=== PATIENT | female | born 1965 | race Asian ===

== ENCOUNTER → 2017-01-11 | Outpatient (CLI) | payer OTHER ==
[~2017-01-11] MED LIST: LIDOCAINE 1%, 20ML ONE; LIDOCAINE 1%-EPI 1:100K, 20ML ONE
== END | disposition home or self-care (01) ==
LOC: CFH 14:07
PROVIDERS: ATTEND Specialist
DX: N63.12 Unspecified lump in the right breast, upper inner quadrant (principal); R59.0 Localized enlarged lymph nodes
CPT/HCPCS: 19083; 76642; 76942; 88305; G0206; J3490

== ENCOUNTER → 2017-01-25 | Outpatient (CLI) | payer OTHER ==
[~2017-01-25] MED LIST changes: +GADOBUTROL 10 MMOL/10 ML VIAL ONE; -LIDOCAINE 1%, 20ML ONE; -LIDOCAINE 1%-EPI 1:100K, 20ML ONE
== END | disposition home or self-care (01) ==
LOC: CFH 11:14
PROVIDERS: ATTEND Surgery
DX: C50.211 Malignant neoplasm of upper-inner quadrant of right female breast (principal); C79.81 Secondary malignant neoplasm of breast
CPT/HCPCS: A9585; C8908

== ENCOUNTER → 2017-01-26 | Outpatient (CLI) | payer OTHER ==
[~2017-01-26] MED LIST changes: -GADOBUTROL 10 MMOL/10 ML VIAL ONE; +OMNIPAQUE 350 MG/ML, 100ML BOTTLE ONE
== END | disposition home or self-care (01) ==
LOC: RAD 11:03
PROVIDERS: ATTEND Surgery
DX: C50.911 Malignant neoplasm of unspecified site of right female breast (principal); N63.10 Unspecified lump in the right breast, unspecified quadrant; M47.9 Spondylosis, unspecified
CPT/HCPCS: 71260; 74177; 78306; A9503; Q9967

== ENCOUNTER 2017-02-02 10:28 | Day surgery (SDC) | payer OTHER ==
[~2017-02-02] VITALS: Ht 160 cm; Wt 70.6 kg
[2017-02-02 10:55] VITALS: BP 158/93
[2017-02-02] MEDS ORDERED: LACTATED RINGERS 1,000 ML IV SCH (11:03)
[2017-02-02] MEDS ORDERED: FLUO40CA2 PO (11:22)
[2017-02-02] MEDS ORDERED: MIDAZOLAM 1 MG/ML, 2ML ONE (11:34)
[2017-02-02] MEDS ORDERED: FENTANYL PF 100 MCG/2ML ONE (11:34)
[2017-02-02] MEDS ORDERED: HYDROmorphone 1 MG/ML, 1ML IV PRN (12:00)
[2017-02-02] MEDS ORDERED: ONDANSETRON 2MG/ML, 2ML IVPush PRN (12:00)
[2017-02-02] MEDS ORDERED: MEPERIDINE/PF 25MG/0.5ML IVPush PRN (12:00)
[2017-02-02] MEDS ORDERED: OXYcodone 5 MG/5 ML ORAL.SOL UDC PO PRN (12:00)
[2017-02-02] MEDS ORDERED: PROMETHAZINE 25 MG/ML, 1ML IV PRN (12:00)
[2017-02-02] MEDS ORDERED: LABETALOL 5MG/ML, 20ML IV PRN (12:00)
[2017-02-02] MEDS ORDERED: FENTANYL PF 100 MCG/2ML IV PRN (12:00)
[2017-02-02] MEDS ORDERED: ACETAMINOPHEN 325 MG TABLET PO PRN (12:00)
[2017-02-02] MEDS ORDERED: hydrALAzine 20 MG/ML, 1ML IV PRN (12:00)
[2017-02-02] MEDS ORDERED: CEFAZOLIN 1,000 MG ONE (12:10)
[2017-02-02] MEDS ORDERED: PROPOFOL 10 MG/ML, 20ML ONE (12:10)
[2017-02-02] MEDS ORDERED: ROCURONIUM 10 MG/ML,10ML ONE (12:10)
[2017-02-02] MEDS ORDERED: DEXAMETHASONE 4 MG/ML, 1ML ONE (12:10)
[2017-02-02] MEDS ORDERED: EPHEDRINE 50 MG/ML, 1ML ONE (12:36)
[2017-02-02] MEDS ORDERED: BUPIVACAINE/PF 0.5% INFIL ONE (12:38)
[2017-02-02] MEDS ORDERED: HEPARIN 1,000 UNITS/ML, 10ML IV ONE (12:39)
[2017-02-02] MEDS ORDERED: ONDANSETRON 2MG/ML, 2ML ONE (13:03)
== END 2017-02-02 16:25 ==
LOC: OUT 10:28
PROVIDERS: ATTEND Surgery
DX: Z45.2 Encounter for adjustment and management of vascular access device (principal); C50.811 Malignant neoplasm of overlapping sites of right female breast; F41.9 Anxiety disorder, unspecified; Z98.890 Other specified postprocedural states
CPT/HCPCS: 36561; 71010; C1769; C1788; J0690; J1100; J1644; J2250; J2405; J2704; J3010; J3490; J7120

== ENCOUNTER → 2017-02-02 | Outpatient (CLI) | payer OTHER ==
[~2017-02-02] MED LIST changes: +FLUO40CA2 PO; -OMNIPAQUE 350 MG/ML, 100ML BOTTLE ONE
== END ==
LOC: CFH 07:19
PROVIDERS: ATTEND Internal Medicine Hematology & Oncology
DX: C50.411 Malignant neoplasm of upper-outer quadrant of right female breast (principal)
CPT/HCPCS: 76000; 77001; 93306

== ENCOUNTER → 2017-02-03 | Outpatient (CLI) | payer OTHER ==
[~2017-02-03] MED LIST changes: +BUPIVACAINE/PF 0.5% ONE; +EPINEPHRINE 1 MG/ML, 1ML ONE; +HEPARIN 1,000 UNITS/ML, 10ML ONE
== END | disposition home or self-care (01) ==
LOC: PETCFH 09:43
PROVIDERS: ATTEND Internal Medicine Hematology & Oncology
DX: C79.81 Secondary malignant neoplasm of breast (principal); C50.411 Malignant neoplasm of upper-outer quadrant of right female breast
CPT/HCPCS: 78815; A9552; J0171; J1644; J3490

== ENCOUNTER → 2017-02-24 | Outpatient (CLI) | payer OTHER ==
[~2017-02-24] MED LIST changes: -BUPIVACAINE/PF 0.5% ONE; -EPINEPHRINE 1 MG/ML, 1ML ONE; +GADOBUTROL 7.5 MMOL/7.5 ML VIAL ONE; -HEPARIN 1,000 UNITS/ML, 10ML ONE
== END | disposition home or self-care (01) ==
LOC: CFH 13:06
PROVIDERS: ATTEND Internal Medicine Hematology & Oncology
DX: C50.211 Malignant neoplasm of upper-inner quadrant of right female breast (principal)
CPT/HCPCS: 70553; A9585

== ENCOUNTER → 2017-04-03 | Outpatient (CLI) | payer OTHER ==
[~2017-04-03] MED LIST changes: -GADOBUTROL 7.5 MMOL/7.5 ML VIAL ONE
== END | disposition home or self-care (01) ==
LOC: CFH 12:28
PROVIDERS: ATTEND Internal Medicine Hematology & Oncology
DX: C79.81 Secondary malignant neoplasm of breast (principal); C50.211 Malignant neoplasm of upper-inner quadrant of right female breast

== ENCOUNTER → 2017-05-15 | Outpatient (CLI) | payer OTHER ==
[~2017-05-15] MED LIST changes: +GADOBUTROL 10 MMOL/10 ML VIAL ONE
== END | disposition home or self-care (01) ==
LOC: CFH 12:29
PROVIDERS: ATTEND Surgery
DX: C50.811 Malignant neoplasm of overlapping sites of right female breast (principal)
CPT/HCPCS: A9585; C8908

== ENCOUNTER → 2017-05-26 | Outpatient (CLI) | payer OTHER ==
[~2017-05-26] MED LIST changes: -GADOBUTROL 10 MMOL/10 ML VIAL ONE
== END | disposition home or self-care (01) ==
LOC: CFH 12:35
PROVIDERS: ATTEND Surgery
DX: C50.811 Malignant neoplasm of overlapping sites of right female breast (principal)

== ENCOUNTER → 2017-06-09 | Outpatient (CLI) | payer OTHER | LOC: STAR 11:12 | PROVIDERS: ATTEND Surgery | DX: Z01.818 Encounter for other preprocedural examination (principal) | CPT/HCPCS: 93005 ==

== ENCOUNTER → 2017-06-09 | Outpatient (CLI) | payer OTHER ==
[~2017-06-09] MED LIST changes: +LIDOCAINE 1%, 20ML ONE; +SODIUM BICARBONATE 4.2%, 5ML ONE
== END | disposition home or self-care (01) ==
LOC: CFH 09:12
PROVIDERS: ATTEND Surgery
DX: C50.811 Malignant neoplasm of overlapping sites of right female breast (principal)
CPT/HCPCS: 76942; J3490

== ENCOUNTER 2017-06-13 11:57 | Day surgery (SDC) | payer OTHER ==
[~2017-06-13] VITALS: Ht 160 cm; Wt 69.2 kg
[~2017-06-13 11:57] MED LIST changes: -LIDOCAINE 1%, 20ML ONE; -SODIUM BICARBONATE 4.2%, 5ML ONE
[2017-06-13] MEDS ORDERED: LACTATED RINGERS 1,000 ML IV SCH ×2 (12:44→19:30)
[2017-06-13] MEDS ORDERED: GABAPENTIN 300 MG CAPSULE PO ONE (13:00)
[2017-06-13] MEDS ORDERED: SCOPOLAMINE PATCH, 1.5MG PATCH.TD72 TD ONE (13:00)
[2017-06-13] MEDS ORDERED: ONDANSETRON ODT 8 MG PO ONE (13:00)
[2017-06-13] MEDS ORDERED: ACETAMINOPHEN 500 MG TABLET PO ONE (13:00)
[2017-06-13] MEDS ORDERED: MIDAZOLAM 1 MG/ML, 2ML ONE (14:34)
[2017-06-13] MEDS ORDERED: FENTANYL PF 250 MCG/5ML ONE (14:34)
[2017-06-13] MEDS ORDERED: PROPOFOL 10 MG/ML, 20ML ONE (14:36)
[2017-06-13] MEDS ORDERED: ROCURONIUM 10MG/ML,5ML ONE (14:37)
[2017-06-13] MEDS ORDERED: NEOSTIGMINE 1 MG/ML, 10ML ONE (14:37)
[2017-06-13] MEDS ORDERED: GLYCOPYRROLATE 0.4 MG/2 ML, 2ML ONE (14:37)
[2017-06-13] MEDS ORDERED: CEFAZOLIN 1,000 MG ONE ×3 (14:38→14:42)
[2017-06-13] MEDS ORDERED: WATER-INJECTION,STERILE 10 ML IV ONE (14:38)
[2017-06-13] MEDS ORDERED: GENTAMICIN 80 MG/2 ML ONE (14:42)
[2017-06-13] MEDS ORDERED: ISOSULFAN BLUE 10 MG/ML, 5ML IV ONE (14:42)
[2017-06-13] MEDS ORDERED: BUPIVACAINE/PF-EPI 0.5% 1:200K ONE (14:42)
[2017-06-13] MEDS ORDERED: BACITRACIN 50,000 UNIT ONE (14:43)
[2017-06-13] MEDS ORDERED: PROMETHAZINE 25 MG/ML, 1ML IV PRN (15:00)
[2017-06-13] MEDS ORDERED: HYDROmorphone 1 MG/ML, 1ML IV PRN (15:00)
[2017-06-13] MEDS ORDERED: ONDANSETRON 0.8 MG/ML ORAL SOL PO PRN (15:00)
[2017-06-13] MEDS ORDERED: MORPHINE SULFATE 4 MG/ML, 1ML IVPush PRN ×2 (15:00→19:30)
[2017-06-13] MEDS ORDERED: hydrALAzine 20 MG/ML, 1ML IV PRN (15:00)
[2017-06-13] MEDS ORDERED: LABETALOL 5MG/ML, 20ML IV PRN (15:00)
[2017-06-13] MEDS ORDERED: PROCHLORPERAZINE 5 MG/ML, 2ML IV PRN (15:00)
[2017-06-13] MEDS ORDERED: MEPERIDINE/PF 25MG/0.5ML IVPush PRN (15:00)
[2017-06-13] MEDS ORDERED: DIPHENHYDRAMINE 50 MG/ML, 1ML IVPush PRN (15:00)
[2017-06-13] MEDS ORDERED: OXYcodone 5 MG/5 ML ORAL.SOL UDC PO PRN (15:00)
[2017-06-13] MEDS ORDERED: PROMETHAZINE 12.5 MG SUPP PR PRN (15:00)
[2017-06-13] MEDS ORDERED: ONDANSETRON 2MG/ML, 2ML IVPush PRN ×2 (15:00→19:30)
[2017-06-13] MEDS ORDERED: DEXAMETHASONE 4 MG/ML, 1ML ONE ×2 (15:41→15:42)
[2017-06-13] MEDS ORDERED: OXYcodone 5 MG/5 ML ORAL.SOL UDC ONE (18:14)
[2017-06-13] MEDS ORDERED: FENTANYL PF 100 MCG/2ML ONE (18:14)
[2017-06-13] MEDS: FENTANYL PF 100 MCG/2ML IV PRN ×2 (18:18→18:28)
[2017-06-13 20:30] VITALS: BP 122/79
[2017-06-14] MEDS ORDERED: ENOXAPARIN 40 MG/0.4 ML SQ SCH (15:00)
== END 2017-06-13 21:20 | disposition home or self-care (01) ==
LOC: OUT 11:57 → EDSTATUS 15:00 → 4NOR 19:01 → OUT 21:20
PROVIDERS: ATTEND Surgery
DX: C50.911 Malignant neoplasm of unspecified site of right female breast (principal); J45.909 Unspecified asthma, uncomplicated; Z45.2 Encounter for adjustment and management of vascular access device; Z98.890 Other specified postprocedural states
CPT/HCPCS: 19303; 36590; 38525; 38792; A9541; J0690; J1100; J1580; J2250; J2704; J2710; J3010; J7120; Q0162; 88305; 88307; 88333; C1729; C1789; C1762

== ENCOUNTER → 2017-09-13 | Outpatient (CLI) | payer OTHER | END | disposition home or self-care (01) | LOC: PETCFH 09:13 | PROVIDERS: ATTEND Internal Medicine Hematology & Oncology | DX: C50.211 Malignant neoplasm of upper-inner quadrant of right female breast (principal) | CPT/HCPCS: 78306; A9503 ==

== ENCOUNTER → 2017-10-20 | Outpatient (CLI) | payer OTHER | END | disposition home or self-care (01) | LOC: ROC 07:08 | PROVIDERS: ATTEND Radiology Radiation Oncology | DX: C50.211 Malignant neoplasm of upper-inner quadrant of right female breast (principal) | CPT/HCPCS: 99213; G0463 ==

== ENCOUNTER 2018-03-16 07:15 | Outpatient (CLI) | payer OTHER | END 2018-03-16 23:59 | disposition home or self-care (01) | LOC: ROC 07:15 | PROVIDERS: ATTEND Radiology Radiation Oncology | DX: Z08 Encounter for follow-up examination after completed treatment for malignant neoplasm (principal); C50.211 Malignant neoplasm of upper-inner quadrant of right female breast | CPT/HCPCS: 99212; G0463 ==

== ENCOUNTER → 2018-06-20 | Outpatient (CLI) | payer OTHER | END | disposition home or self-care (01) | LOC: PETCFH 08:12 | PROVIDERS: ATTEND Family Medicine | DX: C50.211 Malignant neoplasm of upper-inner quadrant of right female breast (principal); M81.8 Other osteoporosis without current pathological fracture | CPT/HCPCS: 78306; A9503 ==

== ENCOUNTER → 2018-07-04 | Outpatient (CLI) | payer OTHER ==
[~2018-07-04] MED LIST changes: +TAMO20TA PO
[2018-07-04 13:35] LABS: BASOPHILS # (AUTO) 0.02 x10^3/uL (0-0.1); BASOPHILS % (AUTO) 1 % (0-1); EOSINOPHILS # (AUTO) 0.07 x10^3/uL (0-0.4); EOSINOPHILS % (AUTO) 1 % (1-7); LYMPHOCYTES # (AUTO) 1.72 x10^3/uL (1-3.4); LYMPHOCYTES % (AUTO) 33 % (22-44); MD NO; MEAN CORPUSCULAR HEMOGLOBIN 33.6 pg (27.0-34.8); MEAN CORPUSCULAR VOLUME 98.7 fL (80-100); MEAN PLATELET VOLUME 7.4 fL (7.4-10.4); MONOCYTES # (AUTO) 0.33 x10^3/uL (0.2-0.8); MONOCYTES % (AUTO) 6 % (2-9); NEUTROPHILS # (AUTO) 3.13 x10^3/uL (1.8-6.8); NEUTROPHILS % (AUTO) 59 % (42-75); PLATELET COUNT 214 x10^3/uL (130-400); RED BLOOD COUNT 4.14 x10^6/uL (3.82-5.3); RED CELL DISTRIBUTION WIDTH 12.3 % (9.6-15.2)
== END | disposition home or self-care (01) ==
LOC: STAR 12:38
PROVIDERS: ATTEND Plastic Surgery
DX: C50.811 Malignant neoplasm of overlapping sites of right female breast (principal); N65.0 Deformity of reconstructed breast; Z85.3 Personal history of malignant neoplasm of breast
CPT/HCPCS: 36415; 85025; 93005

== ENCOUNTER 2018-07-13 05:54 | Day surgery (SDC) | payer OTHER ==
[2018-07-04 13:40] VITALS: BP 110/74
[~2018-07-13] VITALS: Ht 160 cm; Wt 64.9 kg
[2018-07-13] MEDS ORDERED: LIDOCAINE-MPF 2% ,5ML ONE ×2 (07:17→07:39)
[2018-07-13] MEDS ORDERED: CEFAZOLIN 1,000 MG ONE ×3 (07:17→07:39)
[2018-07-13] MEDS ORDERED: MIDAZOLAM 1 MG/ML, 2ML ONE (07:17)
[2018-07-13] MEDS ORDERED: ROCURONIUM 10MG/ML,5ML ONE (07:17)
[2018-07-13] MEDS ORDERED: PROPOFOL 10 MG/ML, 20ML ONE (07:17)
[2018-07-13] MEDS ORDERED: DEXAMETHASONE 4 MG/ML, 1ML ONE ×2 (07:17)
[2018-07-13] MEDS ORDERED: FENTANYL PF 100 MCG/2ML ONE ×2 (07:17→10:05)
[2018-07-13] MEDS ORDERED: ONDANSETRON 2MG/ML, 2ML ONE (07:17)
[2018-07-13] MEDS: LACTATED RINGERS 1,000 ML IV SCH ×2 (07:24→10:24)
[2018-07-13] MEDS ORDERED: MEPERIDINE/PF 25MG/0.5ML IVPush PRN (07:30)
[2018-07-13] MEDS ORDERED: hydrALAzine 20 MG/ML, 1ML IV PRN (07:30)
[2018-07-13] MEDS ORDERED: LABETALOL 5MG/ML, 20ML IV PRN (07:30)
[2018-07-13] MEDS ORDERED: OXYcodone 5 MG/5 ML ORAL.SOL UDC PO PRN (07:30)
[2018-07-13] MEDS ORDERED: LORazepam 2 MG/ML, 1ML IVPush PRN (07:30)
[2018-07-13] MEDS ORDERED: ONDANSETRON 2MG/ML, 2ML IV PRN (07:30)
[2018-07-13] MEDS ORDERED: METOCLOPRAMIDE 5 MG/ML, 2ML IV PRN (07:30)
[2018-07-13] MEDS ORDERED: HYDROmorphone 2 MG/ML, 1ML IVPush PRN (07:30)
[2018-07-13] MEDS ORDERED: ALBUTEROL/IPRATROPIUM 2.5MG/0.5MG, 3 ML NPPB PRN (07:30)
[2018-07-13] MEDS ORDERED: METOPROLOL 1 MG/ML, 5ML IV PRN (07:30)
[2018-07-13] MEDS ORDERED: EPINEPHRINE 1 MG/ML, 1ML ONE (07:39)
[2018-07-13] MEDS ORDERED: SODIUM BICARBONATE 1 MEQ/ML, 50ML VIAL ONE (07:39)
[2018-07-13] MEDS ORDERED: BACITRACIN 50,000 UNIT ONE (07:39)
[2018-07-13] MEDS ORDERED: GENTAMICIN 80 MG/2 ML ONE (07:55)
[2018-07-13] MEDS ORDERED: SCOPOLAMINE PATCH, 1.5MG PATCH.TD72 TD ONE (08:00)
[2018-07-13] MEDS ORDERED: GABAPENTIN 300 MG CAPSULE PO ONE (08:00)
[2018-07-13] MEDS ORDERED: ACETAMINOPHEN 500 MG TABLET PO ONE (08:00)
[2018-07-13] MEDS ORDERED: NEOSTIGMINE 1 MG/ML, 10ML ONE (09:34)
[2018-07-13] MEDS ORDERED: GLYCOPYRROLATE 0.2MG/1ML, 5ML ONE (09:34)
[2018-07-13] MEDS ORDERED: OXYcodone 5 MG/5 ML ORAL.SOL UDC ONE (10:05)
[2018-07-13] MEDS: FENTANYL PF 100 MCG/2ML IV PRN ×2 (10:07→10:17)
[2018-07-13] MEDS ORDERED: HYDROmorphone 2 MG/ML, 1ML ONE (10:09)
== END 2018-07-13 15:50 | disposition home or self-care (01) ==
LOC: OUT 05:54
PROVIDERS: ATTEND Plastic Surgery
DX: N64.89 Other specified disorders of breast (principal); J45.909 Unspecified asthma, uncomplicated; Z72.89 Other problems related to lifestyle; Z85.3 Personal history of malignant neoplasm of breast; Z90.11 Acquired absence of right breast and nipple; Z98.890 Other specified postprocedural states; Z79.899 Other long term (current) drug therapy; Z92.3 Personal history of irradiation
CPT/HCPCS: 19350; 19380; 20926; C1789; J0171; J0690; J1100; J1170; J1580; J2250; J2405; J2704; J2710; J3010; J7120

== ENCOUNTER 2019-01-21 10:29 | Emergency (ER) | payer OTHER ==
[~2019-01-21] VITALS: Ht 160 cm; Wt 69.3 kg
--- NOTE | 2019-01-21 11:16 | NUR ---
PT PRESENTS TO ED WITH C/O SUDDEN DIZZINESS, CONFUSION AND WARM/FLUSHED FEELING ONSET AT 1000 THIS AM. PT STATES SHE IS STILL DIZZY BUT FEELING IS RESOLVING. PT IS A&OX4, RESPS EVEN AND UNLABORED, NEURO INTACT. NO DRIFT NOTED. PUPILS EQUAL, ROUND AND REACTIVE. PT STATES FINGERSTICK BLOOD GLUCOSE TAKEN BY SHREDDING SPECIALIST AT SCENE WAS NORMAL. PT REFUSED [facility] TRANSPORT AND HAD FAMILY TRANSPORT HER TO ED. EKG TAKN IN TRIAGE. ALL MONITORS IN PLACE. [place]WALDO BANSAL AT BEDSIDE.
[2019-01-21 11:36] LABS: ALANINE AMINOTRANSFERASE 53 U/L (12-78); ALBUMIN 3.6 g/dL (3.4-5.0); ANION GAP 6 mmol/L (5-15); CALCIUM 8.8 mg/dL (8.5-10.1); CHLORIDE 107 mmol/L (98-107); CREATININE 0.73 mg/dL (0.55-1.02)
[2019-01-21 11:38] LABS: ALKALINE PHOSPHATASE 134 U/L (45-117); BILIRUBIN,TOTAL 0.4 mg/dL (0.2-1.0); TOTAL PROTEIN 7.8 g/dL (6.4-8.2)
--- NOTE | 2019-01-21 11:53 | NUR ---
REPORT TO LATHA OZUNA. PT AMB TO BATHROOM AND BACK, GAIT STEADY. URINE SENT TO LAB. PT RECONNECTED TO ALL MONITORS.
[2019-01-21 12:06] LABS: BASOPHILS # (AUTO) 0.01 x10^3/uL (0-0.1); BASOPHILS % (AUTO) 0 % (0-1); EOSINOPHILS # (AUTO) 0.18 x10^3/uL (0-0.4); EOSINOPHILS % (AUTO) 3 % (1-7); LYMPHOCYTES # (AUTO) 1.22 x10^3/uL (1-3.4); LYMPHOCYTES % (AUTO) 21 % (22-44); MD NO; MEAN CORPUSCULAR HEMOGLOBIN 33.8 pg (27.0-34.8); MEAN CORPUSCULAR HGB CONC 33.9 g/dL (32.4-35.8); MEAN CORPUSCULAR VOLUME 99.5 fL (80-100); MEAN PLATELET VOLUME 7.5 fL (7.4-10.4); MONOCYTES # (AUTO) 0.35 x10^3/uL (0.2-0.8); MONOCYTES % (AUTO) 6 % (2-9); NEUTROPHILS # (AUTO) 3.95 x10^3/uL (1.8-6.8); NEUTROPHILS % (AUTO) 69 % (42-75); PLATELET COUNT 204 x10^3/uL (130-400); RED BLOOD COUNT 4.13 x10^6/uL (3.82-5.3); RED CELL DISTRIBUTION WIDTH 12.5 % (9.6-15.2)
[2019-01-21 12:29] VITALS: BP 114/70
[2019-01-21 12:31] LABS: MICROSCOPIC INDICATED
[2019-01-21 12:48] LABS: CULTURE INDICATED? YES
== END 2019-01-21 12:54 | disposition home or self-care (01) ==
LOC: ED 12:43
DX: R55 Syncope and collapse (principal); R42 Dizziness and giddiness; R11.0 Nausea
CPT/HCPCS: 36415; 80053; 81001; 83690; 85025; 87086; 93005; 99284

== ENCOUNTER 2019-01-28 14:09 | Outpatient (CLI) | payer OTHER | END 2019-01-28 23:59 | disposition home or self-care (01) | LOC: CFH 14:09 | PROVIDERS: ATTEND Surgery | DX: R92.2 Inconclusive mammogram (principal); Z85.3 Personal history of malignant neoplasm of breast | CPT/HCPCS: 77065; G0279 ==

== ENCOUNTER → 2019-03-05 | Outpatient (CLI) | payer OTHER | END | disposition home or self-care (01) | LOC: CFH 06:34 | PROVIDERS: ATTEND Internal Medicine Cardiovascular Disease | DX: I36.1 Nonrheumatic tricuspid (valve) insufficiency (principal); R42 Dizziness and giddiness; R00.2 Palpitations; Z80.3 Family history of malignant neoplasm of breast | CPT/HCPCS: 93306 ==

== ENCOUNTER → 2019-08-19 | Outpatient (CLI) | payer OTHER ==
[~2019-08-19] MED LIST changes: +CEPH-368 PO; +CITA20TA9 PO; +ONDA4TAB7 PO; +OXYC-302 PO
== END | disposition home or self-care (01) ==
LOC: STAR 08:37
PROVIDERS: ATTEND Plastic Surgery
DX: Z01.818 Encounter for other preprocedural examination (principal); Z11.59 Encounter for screening for other viral diseases; C50.811 Malignant neoplasm of overlapping sites of right female breast; T85.44XD Capsular contracture of breast implant, subsequent encounter; N64.89 Other specified disorders of breast; Z85.3 Personal history of malignant neoplasm of breast; Y83.9 Surgical procedure, unspecified as the cause of abnormal reaction of the patient, or of later complication, without mention of misadventure at the time of the procedure
CPT/HCPCS: 36415; 85025; 87635; 93005

== ENCOUNTER 2019-08-22 09:17 | Inpatient (IN) | payer OTHER ==
[2019-08-19 09:32] LABS: BASOPHILS # (AUTO) 0.02 x10^3/uL (0-0.1); BASOPHILS % (AUTO) 1 % (0-1); EOSINOPHILS % (AUTO) 3 % (1-7); LYMPHOCYTES # (AUTO) 1.49 x10^3/uL (1-3.4); LYMPHOCYTES % (AUTO) 39 % (22-44); MD NO; MEAN CORPUSCULAR HEMOGLOBIN 32.7 pg (27.0-34.8); MEAN CORPUSCULAR VOLUME 98.9 fL (80-100); MEAN PLATELET VOLUME 7.8 fL (7.4-10.4); MONOCYTES % (AUTO) 8 % (2-9); NEUTROPHILS % (AUTO) 50 % (42-75); PLATELET COUNT 190 x10^3/uL (130-400); RED BLOOD COUNT 4.31 x10^6/uL (3.82-5.3); RED CELL DISTRIBUTION WIDTH 13.2 % (9.6-15.2)
[~2019-08-22] VITALS: Ht 160 cm; Wt 65.3 kg
[~2019-08-22 09:17] MED LIST changes: +BACITRACIN 50,000 UNIT ONE; +BUPIVACAINE/PF-EPI 0.5% 1:200K ONE; +CEFAZOLIN 1,000 MG ONE; -CEPH-368 PO; +GENTAMICIN 80 MG/2 ML ONE; -ONDA4TAB7 PO; -OXYC-302 PO
[2019-08-22] MEDS ORDERED: LACTATED RINGERS 1,000 ML IV STA (09:34)
[2019-08-22] MEDS ORDERED: CHLORHEXIDINE 15 ML UDC MM STA (09:34)
[2019-08-22] MEDS ORDERED: LIDOCAINE-MPF 1%, 2ML INFIL STA (09:34)
[2019-08-22 09:35] VITALS: BP 123/78
[2019-08-22] MEDS ORDERED: CHLORHEXIDINE 15 ML UDC ONE (09:41)
[2019-08-22] MEDS ORDERED: LACTATED RINGERS 1,000 ML IV SCH (11:00)
[2019-08-22] MEDS ORDERED: FENTANYL PF 100 MCG/2ML ONE ×4 (11:25→16:09)
[2019-08-22] MEDS ORDERED: LIDOCAINE-MPF 2% ,5ML ONE (11:27)
[2019-08-22] MEDS ORDERED: PROPOFOL 10 MG/ML, 20ML ONE (11:27)
[2019-08-22] MEDS ORDERED: SUCCINYLCHOLINE 20 MG/ML, 10ML ONE (11:27)
[2019-08-22] MEDS ORDERED: ROPIvacaine/PF 0.5%, 30 ML ONE (11:36)
[2019-08-22] MEDS ORDERED: ONDANSETRON 2MG/ML, 2ML ONE (11:44)
[2019-08-22] MEDS ORDERED: ROCURONIUM 10 MG/ML,10ML ONE (11:44)
[2019-08-22] MEDS ORDERED: EPHEDRINE 50 MG/ML, 1ML ONE (11:44)
[2019-08-22] MEDS ORDERED: DEXAMETHASONE 4 MG/ML, 1ML ONE ×2 (11:54)
[2019-08-22] MEDS ORDERED: CEFAZOLIN 1,000 MG ONE ×2 (11:54)
[2019-08-22] MEDS ORDERED: ONDANSETRON 2MG/ML, 2ML IVPush PRN (12:30)
[2019-08-22] MEDS ORDERED: PROMETHAZINE 25 MG/ML, 1ML IVPush PRN (12:30)
[2019-08-22] MEDS ORDERED: OXYcodone 5 MG/5 ML ORAL.SOL UDC PO PRN (12:30)
[2019-08-22] MEDS ORDERED: OXYcodone 5 MG/5 ML ORAL.SOL UDC ONE (15:52)
[2019-08-22] MEDS: FENTANYL PF 100 MCG/2ML IV PRN ×4 (15:54→16:16)
[2019-08-22] MEDS ORDERED: DIPHENHYDRAMINE 50 MG/ML, 1ML IV PRN (18:00)
[2019-08-22] MEDS ORDERED: SODIUM CHLORIDE 0.9%, 500ML IV PRN (18:00)
[2019-08-22] MEDS ORDERED: DIPHENHYDRAMINE 25 MG CAPSULE PO PRN (18:00)
[2019-08-22] MEDS ORDERED: D5%-LACTATED RINGERS 1,000 ML IV SCH (18:00)
[2019-08-22] MEDS ORDERED: hydrALAzine 20 MG/ML, 1ML IV PRN (18:00)
[2019-08-22] MEDS ORDERED: LACTATED RINGERS 500 ML IV PRN (18:00)
[2019-08-22] MEDS ORDERED: HYDROmorphone 2 MG/ML, 1ML IVPush PRN (18:00)
[2019-08-22] MEDS ORDERED: ONDANSETRON 2MG/ML, 2ML IV PRN (18:00)
[2019-08-22] MEDS ORDERED: LORazepam 2 MG/ML, 1ML IV PRN (18:00)
[2019-08-22] MEDS ORDERED: LORazepam 1MG TABLET PO PRN (18:00)
[2019-08-22] MEDS ORDERED: ACETAMINOPHEN 650 MG SUPP PR PRN (18:00)
[2019-08-22] MEDS ORDERED: ACETAMINOPHEN 325 MG TABLET PO PRN (18:00)
[2019-08-22 18:35] VITALS: BP 116/76
[2019-08-22] MEDS: CEFAZOLIN PMX 2GM/50ML 50 ML IVPB SCH (20:07)
[2019-08-22] MEDS: OXYcodone/APAP 5/325MG TABLET PO PRN (20:09)
[2019-08-23 00:39] VITALS: BP 101/62
[2019-08-23] MEDS: OXYcodone/APAP 5/325MG TABLET PO PRN ×3 (01:55→10:25)
[2019-08-23 03:25] VITALS: BP 94/57
[2019-08-23] MEDS: CEFAZOLIN PMX 2GM/50ML 50 ML IVPB SCH (03:42)
[2019-08-23 07:40] VITALS: BP 97/61
[2019-08-23] MEDS ORDERED: CEPH-368 PO (08:32)
[2019-08-23] MEDS ORDERED: OXYC-302 PO (08:32)
[2019-08-23] MEDS ORDERED: ONDA4TAB7 PO (08:33)
[2019-08-23] MEDS ORDERED: CITALOPRAM 20 MG TABLET PO SCH (09:00)
[2019-08-23 12:39] VITALS: BP 102/66
[2019-08-23] MEDS ORDERED: ENOXAPARIN 40 MG/0.4 ML SQ SCH (14:00)
== END 2019-08-23 13:09 | disposition home or self-care (01) | DRG 583 ==
LOC: ORIP 09:17 → 4NE 17:17 → DCLOUNGE 08-23 13:00
PROVIDERS: ADMIT Plastic Surgery; ATTEND Plastic Surgery
PROC: 0HPU0JZ Removal of Synthetic Substitute from Left Breast, Open Approach (ICD-10-PCS; 2019-08-22)
PROC: 0HPT0JZ Removal of Synthetic Substitute from Right Breast, Open Approach (ICD-10-PCS; 2019-08-22)
PROC: 0HRT075 Replacement of Right Breast using Latissimus Dorsi Myocutaneous Flap, Open Approach (ICD-10-PCS; 2019-08-22)
PROC: 0HPT0NZ Removal of Tissue Expander from Right Breast, Open Approach (ICD-10-PCS; 2019-08-22)
PROC: 0HBU0ZZ Excision of Left Breast, Open Approach (ICD-10-PCS; 2019-08-22)
PROC: 0HRT0JZ Replacement of Right Breast with Synthetic Substitute, Open Approach (ICD-10-PCS; principal; 2019-08-22 11:30)
DX: T85.44XA Capsular contracture of breast implant, initial encounter (principal); C50.911 Malignant neoplasm of unspecified site of right female breast; F32.9 Major depressive disorder, single episode, unspecified; Z79.899 Other long term (current) drug therapy; Z90.13 Acquired absence of bilateral breasts and nipples; Y83.1 Surgical operation with implant of artificial internal device as the cause of abnormal reaction of the patient, or of later complication, without mention of misadventure at the time of the procedure; Y92.89 Other specified places as the place of occurrence of the external cause
CPT/HCPCS: J3490; J7121; 36415; 85025; 87635; G0378; J0690; J1100; J2405; J2704; J2795; J3010; J0330; J1580; J2060; J7120

== ENCOUNTER → 2020-02-24 | Outpatient (CLI) | payer OTHER ==
[~2020-02-24] MED LIST changes: -BACITRACIN 50,000 UNIT ONE; -BUPIVACAINE/PF-EPI 0.5% 1:200K ONE; -CEFAZOLIN 1,000 MG ONE; +CEPH-368 PO; -GENTAMICIN 80 MG/2 ML ONE; +ONDA4TAB7 PO; +OXYC-302 PO
== END | disposition home or self-care (01) ==
LOC: CFH 07:07
PROVIDERS: ATTEND Surgery
DX: C50.211 Malignant neoplasm of upper-inner quadrant of right female breast (principal); M81.8 Other osteoporosis without current pathological fracture; M85.89 Other specified disorders of bone density and structure, multiple sites; Z90.11 Acquired absence of right breast and nipple; Z98.82 Breast implant status
CPT/HCPCS: 76641; 77080

== ENCOUNTER → 2020-03-03 | Outpatient (CLI) | payer OTHER ==
[~2020-03-03] MED LIST changes: -OXYC-302 PO; +OXYC1TAB14 PO
== END | disposition home or self-care (01) ==
LOC: CFH 09:04
PROVIDERS: ATTEND Surgery
DX: C50.211 Malignant neoplasm of upper-inner quadrant of right female breast (principal); N60.02 Solitary cyst of left breast; N63.20 Unspecified lump in the left breast, unspecified quadrant
CPT/HCPCS: 76642

== ENCOUNTER → 2020-03-05 | Outpatient (CLI) | payer OTHER ==
[~2020-03-05] MED LIST changes: +LIDOCAINE 1%, 20ML ONE; +LIDOCAINE 1%-EPI 1:100K, 20ML ONE; +SODIUM BICARBONATE 4.2%, 5ML ONE
== END | disposition home or self-care (01) ==
LOC: CFH 07:27
PROVIDERS: ATTEND Internal Medicine Hematology & Oncology
DX: N60.02 Solitary cyst of left breast (principal); N63.0 Unspecified lump in unspecified breast; Z85.3 Personal history of malignant neoplasm of breast; Z90.11 Acquired absence of right breast and nipple; N64.1 Fat necrosis of breast
CPT/HCPCS: 19083; 77065; 88305; J3490

== ENCOUNTER → 2020-09-23 | Outpatient (CLI) | payer OTHER ==
[~2020-09-23] MED LIST changes: -LIDOCAINE 1%, 20ML ONE; -LIDOCAINE 1%-EPI 1:100K, 20ML ONE; -SODIUM BICARBONATE 4.2%, 5ML ONE
== END | disposition home or self-care (01) ==
LOC: CFH 09:43
PROVIDERS: ATTEND Surgery
DX: N60.02 Solitary cyst of left breast (principal)
CPT/HCPCS: 76642; 77061; 77065; G0279